=== PATIENT | male | born 1980 | race Two or more races ===

== ENCOUNTER 2020-06-19 04:46 | Emergency (ER) | payer OTHER ==
[2020-06-19] MEDS ORDERED: Adenosine 6 MG/2 ML SDV ONE ×2 (04:50→04:57)
[2020-06-19] MEDS ORDERED: Diltiazem 25 MG/5 ML SDV ONE ×2 (05:01→05:21)
[2020-06-19] MEDS ORDERED: Sodium Chloride 0.9% 2.5 ML Syringe FLUSH PRN (05:04)
[2020-06-19] MEDS ORDERED: Sodium Chloride 0.9% 10 ML Syringe FLUSH PRN (05:04)
[2020-06-19] MEDS ORDERED: Adenosine 6 MG/2 ML SDV IVPUSH ONE ×2 (05:10→05:11)
[2020-06-19] MEDS ORDERED: Diltiazem 25 MG/5 ML SDV IVPUSH ONE ×2 (05:11→06:16)
[2020-06-19] MEDS ORDERED: Sodium Chloride 0.9% 1,000 ML IV SCH ×2 (05:15→06:30)
[2020-06-19 05:25] LABS: BLOOD UREA NITROGEN,BUN 8 mg/dL (7.0-18.0); CARBON DIOXIDE,CO2 20.4 mmol/L (21.0-32.0); CHLORIDE,CL 105 mmol/L (98-107); GLUCOSE RANDOM 116 mg/dL (74-106); POTASSIUM,K 3.5 mmol/L (3.5-5.1); SODIUM,NA 141 mmol/L (136-148)
[2020-06-19] MEDS ORDERED: Heparin Sodium 5,000 Units/ML Vial IVPUSH ONE (05:35)
[2020-06-19] MEDS ORDERED: Diltiazem 125 MG in Sodium Chloride 0.9% 100 ML IV SCH (05:45)
[2020-06-19] MEDS ORDERED: Heparin Sod,Pork In 0.45% Nacl 25,000 UNIT/500 ML IV.SOLN IV SCH (05:45)
[2020-06-19] MEDS ORDERED: Heparin Sod,Pork In 0.45% Nacl 25,000 UNIT/500 ML IV.SOLN IV ONE (05:49)
[2020-06-19] MEDS ORDERED: Sodium Chloride 0.9% 100 ML ONE (05:54)
--- NOTE | 2020-06-19 06:09 | CR ---
INDICATION: Chest pain TECHNIQUE: Chest 1 view COMPARISON: None FINDINGS: Cardiovascular and mediastinum: Heart size and vasculature are normal in caliber and appearance. Lungs and pleural spaces: Lungs are clear. No sign of infiltrate or mass. No sign of pleural effusion. No pneumothorax. Bones and soft tissues: No significant findings. IMPRESSION: Normal chest. Dictated by Venu Boyle MD @ Jun 19 2020 6:06AM Signed by Dr. Venu Boyle @ Jun 19 2020 6:06AM
[2020-06-19] MEDS ORDERED: Diltiazem 100 MG in Sodium Chloride 0.9% 100 ML IV SCH (06:15)
[2020-06-19] MEDS ORDERED: Calcium Gluconate 10% 1 GM/10 ML SDV IV STA (06:20)
[2020-06-19] MEDS ORDERED: Calcium Gluconate 10% 1 GM/10 ML SDV ONE (06:21)
--- NOTE | 2020-06-19 06:24 | EDM.PDOC ---
ED HPI GENERAL MEDICAL PROBLEM - General Chief Complaint: Chest Pain Stated Complaint: CHEST PAIN Time Seen by Provider: 06/19/20 04:48 - History of Present Illness INITIAL COMMENTS - FREE TEXT/NARRATIVE: CHIEF COMPLAINT(S): Chest pain HISTORY OF PRESENT ILLNESS: This is a 39-year-old man who presents to the emergency department as a medical resuscitation via EMS with a chief complaint of chest pain. Per EMS: On arrival patient had normal blood pressure but was tacky into the 190s to 200s. They did provide the patient with 324 mg of aspirin. They did obtain a rhythm strip for which the interpreted SVT. They attempted vagal maneuvers without any success. They then provided the patient with 6 mg of SVT and his heart rate went down into the 140s however returned back to the 200s. They transfer him to the hospital. The patient states that approximately 1 hour prior to arrival he started to experience left-sided chest pain associated with diaphoresis and shortness of breath. He rated his pain as 10 out of 10 which has since improved to 4 out of 10. He denied any radiation of this pain. He denies any aggravating or relieving symptoms. He denied any nausea or vomiting or left arm numbness or tingling. He denies any headache, or any other symptom. He denies any coronavirus exposure. He states that he was recently started on lisinopril for hypertension and has a history of sleep apnea. He states that he does not have a history of atrial fibrillation. He denies any personal history of CAD or heart disease or any family history of CAD or heart disease. He states that he does drink alcohol approximately 612 ounce beers a day. He denies any history of alcohol withdrawal. Last drink was earlier yesterday. REVIEW OF SYSTEMS: Constitutional: Positive for diaphoresis. Denies fever, chills. Eyes: Denies eye pain Ears, Nose, Mouth, & Throat: Denies earache Cardiovascular: Positive for chest pain Respiratory: Positive for shortness of breath. Denies cough Gastrointestinal: Denies Nausea, vomiting, diarrhea, hematochezia. Genitourinary: Denies hematuria Skin:Denies a rash Neurological: Denies blurred vision Psychiatric: Denies depression PAST MEDICAL HISTORY: As per history of present illness and as reviewed below otherwise noncontributory. SURGICAL HISTORY: As per history of present illness and as reviewed below otherwise noncontributory. SOCIAL HISTORY: As per history of present illness and as reviewed below otherwise noncontributory. FAMILY HISTORY: As per history of present illness and as reviewed below otherwise noncontributory. EXAMINATION OF ORGAN SYSTEMS/BODY AREAS: VITALS: Heart rate was 211, respiratory rate 18 with an oxygen saturation 99% on room air.. GENERAL: The patient is well-nourished, well-developed, in no acute distress. HEAD: Normocephalic, atraumatic. EYES: EOMs intact. PERRL. ENT. External ears WNL. Nares patent. Oropharynx is clear with no erythema or exudate. No uvular or tongue swelling. NECK: Supple, no masses. Trachea is midline. LUNGS: No tachypnea or intercostal retractions. Clear to auscultation bilaterally, no wheezing, no rales, no stridor, no rhonchi. CARDIOVASCULAR: Tachycardic. No murmurs, rubs, gallops no edema. No JVD. ABDOMEN: Soft, non-distended, non-tender. Bowel sounds present in all 4 quadrants. No rebound tenderness, guarding, or peritoneal signs. MUSCULOSKELETAL: No deformity. Patient is moving all 4 limbs spontaneously. NEUROLOGICAL: Alert and oriented x 3. No focal neurological deficits noted. SKIN: No rashes, or pallor. No signs of injury. MEDICAL DECISION MAKING AND COURSE IN THE ED WITH INTERPRETATION/REVIEW OF DIAGNOSTIC STUDIES: This is a 39-year-old man who presents to the emergency department as a medical resuscitation via EMS with a chief complaint of chest pain. Immediately upon entering the resuscitation room the patient was disrobed, placed on continuous cardiac monitoring, and IV access was established by nursing. Patient is able to speak thus displaying a patent airway, breath sounds are equal bilaterally, and patient has palpable pulses in all 4 extremities. At this time the patient was placed on the monitor and his heart rate was in the 200s. It appeared regular on the monitor. We did obtain an EKG which showed narrow complex tachycardia with occasional P waves. This could represent sinus tachycardia, atrial fibrillation with RVR, or SVT. We did provide the patient with 6 mg of adenosine to evaluate rhythm. 6 mg of adenosine did not have any effect. Therefore we provided the patient with 12 mg of adenosine. The rhythm did slow down and appeared to be atrial fibrillation with RVR. Therefore we provided the patient with 20 mg of IV Cardizem. His heart rate did decrease to the 110s however then returned to the 150s. We then provided the patient with additional bolus of Cardizem at 25 mg. Again his heart rate did decrease to the 110s and then increased to the 150s. Therefore we started a Cardizem drip. Given new onset atrial fibrillation and chest pain we will obtain a cardiac work-up. Including CBC, CMP, troponin, coags, chest x- ray. I also provide the patient with 1 L of normal saline bolus. Chest Xray: Chest Xray obtained in the resuscitation bay was interpreted by myself. Image showed no acute cardiopulmonary process EKG INTERPRETATION Twelve-lead EKG interpreted by the attending physician and reviewed with me. Atrial fibrillation with RVR at a rate of 211 beats per minute. Normal axis. QRS duration is 106ms. ST segments are normal without elevations or depressions. No Q waves present. Hypertrophy not noted. No prior EKGs in our system. There is an isolated T wave inversion in lead aVL. Interpretation: Atrial fibrillation with RVR Laboratory: CBC reveals a microcytic anemia with a hemoglobin of 10 and hematocrit of 34.3. Coags are within normal limits. CMP reveals metabolic acidosis with a bicarbonate of 20.4 without any anion gap. Hyperglycemia at 116. Hypocalcemia at 8.0. Albumin is normal. Mild elevation in AST at 39. Troponin x1 is positive at 0.059. After labs I did start the patient on heparin for possible NSTEMI. I also reevaluated the patient. The patient denied any hematemesis, melena, or hematochezia. He does not have any history of anemia. I did discuss transfer with the patient at this time and he was amenable to this plan. At this time given need for cardiology we did contact [facility] which was the closest accepting facility and I did speak to Dr. Hussein regarding transfer. She did accept the patient. The patient will be transferred via fixed wing. She recommended obtaining a TSH for which I did order the TSH. This will likely not be resulted prior to the patient leaving. We did send a coronavirus swab. Flight crew did arrive. At the time that the flight crew left the patient's heart rate was 130. They will continue titrating the Cardizem for a heart rate less than 110. The patient was asymptomatic at this time. DISPOSITION: Transfer to [facility] CONDITION: Serious Procedures: cafeteria monitor interpretation, Pulse oximetry interpretation FINAL IMPRESSION(S)/DIAGNOSES: 1. Acute new onset atrial fibrillation with RVR 2. Acute elevated troponin, possible NSTEMI versus type II demand ischemia 3. Microcytic anemia 4. Hypocalcemia Critical Care Procedure Note Authorized and performed by: Vaibhav Bautista M.D. Critical Care Time: 60 minutes Due to a high probability of clinically significant, life threatening deterioration, the patient required my highest level of preparedness to intervene emergently and I personally spent this critical care time directly and personally managing the patient. This critical care time included obtaining a history, examining the patient, pulse oximetry; ordering and review of studies; arranging urgent treatment with development of a management plan; evaluation of a patients reponse to treatment; frequent assessment; and discussions with other providers. This critical care time was performed to assess and manage the high probability of imminent, life threatening deterioration that could result in multiorgan failure. It was exclusive of separate billable procedures and treating other patients. Please see MDM section and rest of the note for further information on patient assessment and treatment. Please see MDM section and rest of the note for further information on patient assessment and treatment. 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: Aspirin, IV/IO, Other Medication(s) Left Upper Chest Pain Score (Numeric/FACES): 4 - Related Data Allergies Allergy/AdvReac Type Severity Reaction Status Date / Time No Known Allergies Allergy Verified 06/19/20 05:04 Home Meds: Home Meds lisinopriL [Lisinopril] 5 mg PO DAILY 06/19/20 [History] ED ROS GENERAL - Review of Systems Review Of Systems: See Below ED EXAM, GENERAL - Physical Exam Exam: See Below Course - Vital Signs Last Recorded V/S: Last Vital Signs Temp Pulse 211 H 06/19/20 04:48 Resp 18 06/19/20 04:48 BP 136/85 06/19/20 04:48 Pulse Ox 99 06/19/20 04:48 - Orders/Labs/Meds Orders: Active Orders 24 hr Category Date Time Status EKG Documentation Completion [RC] STAT Care 06/19/20 05:04 Active Diltiazem 100 mg Med 06/19/20 06:15 Active Sodium Chloride 0.9% [Normal Saline] 100 ml IV NOW Diltiazem 125 mg Med 06/19/20 05:45 Active Sodium Chloride 0.9% [Normal Saline] 100 ml IV NOW Heparin Sod,Pork In 0.45% Nacl [Heparin-1/2Ns 25,000 Med 06/19/20 05:45 Active Units/500] 25,000 unit in 500 ml IV TITRATE Sodium Chloride 0.9% [Normal Saline] 1,000 ml Med 06/19/20 05:15 Active IV ASDIRECTED Sodium Chloride 0.9% [Normal Saline] 1,000 ml Med 06/19/20 06:30 Active IV ASDIRECTED Sodium Chloride 0.9% [Saline Flush] Med 06/19/20 05:04 Active 10 ml FLUSH ASDIRECTED PRN Sodium Chloride 0.9% [Saline Flush] Med 06/19/20 05:04 Active 2.5 ml FLUSH ASDIRECTED PRN Saline Lock Insert [OM.PC] Stat Oth 06/19/20 05:04 Ordered Medication Orders Sodium Chloride (Normal Saline) 1,000 mls @ 999 mls/hr IV ASDIRECTED ROBERTO Last Admin: 06/19/20 06:16 Dose: 999 mls/hr Documented by: EMANUEL Heparin Sodium/Sodium Chloride (Heparin-1/2ns 25,000 Units/500) 25,000 unit in 500 mls @ 25.038 mls/hr IV TITRATE ROBERTO; Protocol Last Admin: 06/19/20 06:00 Dose: 12 units/kg/hr, 25.038 mls/hr Documented by: EMANUEL Cosigned by: KWESI Diltiazem HCl 125 mg/ Sodium (Chloride) 125 mls @ 5 mls/hr IV NOW ROBERTO; Protocol Diltiazem HCl 100 mg/ Sodium (Chloride) 120 mls @ 6 mls/hr IV NOW ROBERTO; Protocol Sodium Chloride (Normal Saline) 1,000 mls @ 999 mls/hr IV ASDIRECTED ROBERTO Sodium Chloride (Saline Flush) 10 ml FLUSH ASDIRECTED PRN PRN Reason: Keep Vein Open Sodium Chloride (Saline Flush) 2.5 ml FLUSH ASDIRECTED PRN PRN Reason: Keep Vein Open Labs: Laboratory Tests 06/19/20 06/19/20 06/19/20 Range/Units 04:48 04:48 04:48 WBC 5.08 (4.0-11.0) K/uL RBC 5.58 (4.50-5.90) M/uL Hgb 10.0 L (13.0-17.0) g/dL Hct 34.3 L (38.0-50.0) % MCV 61.5 L (80.0-98.0) fL MCH 17.9 L (27.0-32.0) pg MCHC 29.2 L (31.0-37.0) g/dL RDW Std Deviation 42.3 (28.0-62.0) fl RDW Coeff of Des 20 H (11.0-15.0) % Plt Count 207 (150-400) K/uL MPV (7.40-12.00) fL Neut % (Auto) 39.3 L (48.0-80.0) % Lymph % (Auto) 46.9 H (16.0-40.0) % [place] % (Auto) 7.5 (0.0-15.0) % Eos % (Auto) 6.1 (0.0-7.0) % Baso % (Auto) 0.2 (0.0-1.5) % Neut # (Auto) 2.0 (1.4-5.7) K/uL Lymph # (Auto) 2.4 (0.6-2.4) K/uL [place] # (Auto) 0.4 (0.0-0.8) K/uL Eos # (Auto) 0.3 (0.0-0.7) K/uL Baso # (Auto) 0.0 (0.0-0.1) K/uL Nucleated RBC % 0.0 /100WBC Nucleated RBCs # 0 K/uL INR 1.10 Sodium 141 (136-148) mmol/L Potassium 3.5 (3.5-5.1) mmol/L Chloride 105 (98-107) mmol/L Carbon Dioxide 20.4 L (21.0-32.0) mmol/L BUN 8 (7.0-18.0) mg/dL Creatinine 1.1 (0.8-1.3) mg/dL Est Cr Clr Drug Dosing 85.13 mL/min Estimated GFR (MDRD) > 60.0 ml/min Glucose 116 H (74-106) mg/dL Calcium 8.0 L (8.5-10.1) mg/dL Total Bilirubin 0.3 (0.2-1.0) mg/dL AST 39 H (15-37) IU/L ALT 49 (14-63) IU/L Alkaline Phosphatase 91 (46-116) U/L Troponin I 0.059 H* (0.000-0.056) ng/mL Total Protein 7.9 (6.4-8.2) g/dL Albumin 4.3 (3.4-5.0) g/dL Globulin 3.6 (2.6-4.0) g/dL Albumin/Globulin Ratio 1.2 (0.9-1.6) TSH 3rd Generation (0.36-3.74) uIU/mL Urine Color Urine Appearance Urine pH (5.0-8.0) Ur Specific [place] (1.001-1.035) Urine Protein (NEGATIVE) mg/dL Urine Glucose (UA) (NEGATIVE) mg/dL Urine Ketones (NEGATIVE) mg/dL Urine Occult Blood (NEGATIVE) Urine Nitrite (NEGATIVE) Urine Bilirubin (NEGATIVE) Urine Urobilinogen (<2.0) EU/dL Ur Leukocyte Esterase (NEGATIVE) SARS-CoV-2 RNA (LORRI) (NEGATIVE) 06/19/20 06/19/20 06/19/20 Range/Units 04:48 05:30 05:33 WBC (4.0-11.0) K/uL RBC (4.50-5.90) M/uL Hgb (13.0-17.0) g/dL Hct (38.0-50.0) % MCV (80.0-98.0) fL MCH (27.0-32.0) pg MCHC (31.0-37.0) g/dL RDW Std Deviation (28.0-62.0) fl RDW Coeff of Des (11.0-15.0) % Plt Count (150-400) K/uL MPV (7.40-12.00) fL Neut % (Auto) (48.0-80.0) % Lymph % (Auto) (16.0-40.0) % [place] % (Auto) (0.0-15.0) % Eos % (Auto) (0.0-7.0) % Baso % (Auto) (0.0-1.5) % Neut # (Auto) (1.4-5.7) K/uL Lymph # (Auto) (0.6-2.4) K/uL [place] # (Auto) (0.0-0.8) K/uL Eos # (Auto) (0.0-0.7) K/uL Baso # (Auto) (0.0-0.1) K/uL Nucleated RBC % /100WBC Nucleated RBCs # K/uL INR Sodium (136-148) mmol/L Potassium (3.5-5.1) mmol/L Chloride (98-107) mmol/L Carbon Dioxide (21.0-32.0) mmol/L BUN (7.0-18.0) mg/dL Creatinine (0.8-1.3) mg/dL Est Cr Clr Drug Dosing mL/min Estimated GFR (MDRD) ml/min Glucose (74-106) mg/dL Calcium (8.5-10.1) mg/dL Total Bilirubin (0.2-1.0) mg/dL AST (15-37) IU/L ALT (14-63) IU/L Alkaline Phosphatase (46-116) U/L Troponin I (0.000-0.056) ng/mL Total Protein (6.4-8.2) g/dL Albumin (3.4-5.0) g/dL Globulin (2.6-4.0) g/dL Albumin/Globulin Ratio (0.9-1.6) TSH 3rd Generation 4.86 H (0.36-3.74) uIU/mL Urine Color YELLOW Urine Appearance CLEAR Urine pH 6.5 (5.0-8.0) Ur Specific [place] 1.010 (1.001-1.035) Urine Protein NEGATIVE (NEGATIVE) mg/dL Urine Glucose (UA) NEGATIVE (NEGATIVE) mg/dL Urine Ketones NEGATIVE (NEGATIVE) mg/dL Urine Occult Blood NEGATIVE (NEGATIVE) Urine Nitrite NEGATIVE (NEGATIVE) Urine Bilirubin NEGATIVE (NEGATIVE) Urine Urobilinogen 0.2 (<2.0) EU/dL Ur Leukocyte Esterase NEGATIVE (NEGATIVE) SARS-CoV-2 RNA (LORRI) NEGATIVE (NEGATIVE) Meds: Medications Generic Name Dose Route Start Last Admin Trade Name Freq PRN Reason Stop Dose Admin Sodium Chloride 1,000 mls @ 999 mls/hr 06/19/20 05:15 06/19/20 06:16 Normal Saline IV 999 mls/hr ASDIRECTED ROBERTO Administration Heparin Sodium/Sodium Chloride 25,000 unit in 500 mls @ 25.038 mls/hr 06/19/20 05:45 06/19/20 06:00 Heparin-1/2ns 25,000 Units/500 IV 12 units/kg/hr TITRATE ROBERTO 25.038 mls/hr Administration Protocol 12 UNITS/KG/HR Diltiazem HCl 125 mg/ Sodium 125 mls @ 5 mls/hr 06/19/20 05:45 Chloride IV NOW ROBERTO Protocol 5 MG/HR Diltiazem HCl 100 mg/ Sodium 120 mls @ 6 mls/hr 06/19/20 06:15 Chloride IV NOW ROBERTO Protocol 5 MG/HR Sodium Chloride 1,000 mls @ 999 mls/hr 06/19/20 06:30 Normal Saline IV ASDIRECTED ROBERTO Sodium Chloride 10 ml 06/19/20 05:04 Saline Flush FLUSH ASDIRECTED PRN Keep Vein Open Sodium Chloride 2.5 ml 06/19/20 05:04 Saline Flush FLUSH ASDIRECTED PRN Keep Vein Open Discontinued Medications Generic Name Dose Route Start Last Admin Trade Name Freq PRN Reason Stop Dose Admin Adenosine Confirm 06/19/20 04:50 06/19/20 06:18 Adenocard Administered 06/19/20 04:51 Not Given Dose 12 mg .ROUTE .STK-MED ONE Adenosine Confirm 06/19/20 04:57 06/19/20 06:18 Adenocard Administered 06/19/20 04:58 Not Given Dose 12 mg .ROUTE .STK-MED ONE Adenosine 6 mg 06/19/20 05:10 06/19/20 06:12 Adenocard IVPUSH 06/19/20 05:11 6 mg NOW ONE Administration Adenosine 12 mg 06/19/20 05:11 06/19/20 06:13 Adenocard IVPUSH 06/19/20 05:12 12 mg NOW ONE Administration Calcium Gluconate 1 gm 06/19/20 06:20 06/19/20 06:22 Calcium Gluconate IV 06/19/20 06:21 1 gm ONETIME STA Administration Calcium Gluconate Confirm 06/19/20 06:21 Calcium Gluconate Administered 06/19/20 06:22 Dose 1 gm .ROUTE .STK-MED ONE Diltiazem HCl Confirm 06/19/20 05:01 06/19/20 06:19 Diltiazem Administered 06/19/20 05:02 Not Given Dose 25 mg .ROUTE .STK-MED ONE Diltiazem HCl 20 mg 06/19/20 05:11 06/19/20 06:15 Diltiazem IVPUSH 06/19/20 05:12 20 mg ONETIME ONE Administration Diltiazem HCl Confirm 06/19/20 05:21 Diltiazem Administered 06/19/20 05:22 Dose 25 mg .ROUTE .STK-MED ONE Diltiazem HCl 25 mg 06/19/20 06:16 06/19/20 06:16 Diltiazem IVPUSH 06/19/20 06:17 25 mg ONETIME ONE Administration Heparin Sodium (Porcine) 4,000 units 06/19/20 05:35 06/19/20 05:58 Heparin Sodium IVPUSH 06/19/20 05:36 4,000 units .BOLUS ONE Administration Heparin Sodium/Sodium Chloride Confirm 06/19/20 05:49 06/19/20 06:13 Heparin-1/2ns 25,000 Units/500 Administered 06/19/20 05:50 Not Given Dose 25,000 unit in 500 mls @ as directed IV .STK-MED ONE Sodium Chloride Confirm 06/19/20 05:54 Normal Saline Administered 06/19/20 05:55 Dose 100 mls @ as directed .ROUTE .STK-MED ONE Departure - Departure Time of Disposition: 06:30 Disposition: DC/Tfer to Acute Hospital 02 Reason for Transfer *Q: Other (Cardiology) Clinical Impression: Atrial fibrillation with RVR, NSTEMI (non-ST elevated myocardial infarction) Referrals: PCP,None [Primary Care Provider] - Forms: ED Department Discharge Sepsis Event Note (ED) - Evaluation Sepsis Screening Result: No Definite Risk - Focused Exam Vital Signs: Vital Signs Pulse Resp BP Pulse Ox 06/19/20 04:48 211 H 18 136/85 99 - My Orders Last 24 Hours: My Active Orders 06/19/20 05:04 EKG Documentation Completion [RC] STAT Sodium Chloride 0.9% [Saline Flush] 10 ml FLUSH ASDIRECTED PRN Sodium Chloride 0.9% [Saline Flush] 2.5 ml FLUSH ASDIRECTED PRN Saline Lock Insert [OM.PC] Stat 06/19/20 05:15 Sodium Chloride 0.9% [Normal Saline] 1,000 ml IV ASDIRECTED 06/19/20 05:45 Diltiazem 125 mg Sodium Chloride 0.9% [Normal Saline] 100 ml IV NOW Heparin Sod,Pork In 0.45% Nacl [Heparin-1/2Ns 25,000 Units/500] 25,000 unit in 500 ml IV TITRATE 06/19/20 06:15 Diltiazem 100 mg Sodium Chloride 0.9% [Normal Saline] 100 ml IV NOW 06/19/20 06:30 Sodium Chloride 0.9% [Normal Saline] 1,000 ml IV ASDIRECTED - Assessment/Plan Last 24 Hours: My Active Orders 06/19/20 05:04 EKG Documentation Completion [RC] STAT Sodium Chloride 0.9% [Saline Flush] 10 ml FLUSH ASDIRECTED PRN Sodium Chloride 0.9% [Saline Flush] 2.5 ml FLUSH ASDIRECTED PRN Saline Lock Insert [OM.PC] Stat 06/19/20 05:15 Sodium Chloride 0.9% [Normal Saline] 1,000 ml IV ASDIRECTED 06/19/20 05:45 Diltiazem 125 mg Sodium Chloride 0.9% [Normal Saline] 100 ml IV NOW Heparin Sod,Pork In 0.45% Nacl [Heparin-1/2Ns 25,000 Units/500] 25,000 unit in 500 ml IV TITRATE 06/19/20 06:15 Diltiazem 100 mg Sodium Chloride 0.9% [Normal Saline] 100 ml IV NOW 06/19/20 06:30 Sodium Chloride 0.9% [Normal Saline] 1,000 ml IV ASDIRECTED
== END 2020-06-19 06:40 ==
LOC: MW.ED 04:46
DX: I48.91 Unspecified atrial fibrillation (principal); R79.89 Other specified abnormal findings of blood chemistry; D50.9 Iron deficiency anemia, unspecified; E83.51 Hypocalcemia; Z20.828 Contact with and (suspected) exposure to other viral communicable diseases
CPT/HCPCS: 36415; 71045; 80053; 81003; 84443; 84484; 85025; 85610; 87635; 96365; 96368; 96375; 96376; 99285; J0153; J0610; J1644; J3490; J7030; 93010; 99291; A9270-GY; U0002

== ENCOUNTER 2020-07-20 19:33 | Emergency (ER) | payer BC ==
[2020-07-20] MEDS ORDERED: Sodium Chloride 0.9% 10 ML Syringe FLUSH PRN (20:28)
[2020-07-20] MEDS ORDERED: Sodium Chloride 0.9% 2.5 ML Syringe FLUSH PRN (20:28)
--- NOTE | 2020-07-20 20:33 | EDM.PDOC ---
ED HPI GENERAL MEDICAL PROBLEM - General Chief Complaint: Cardiovascular Problem Stated Complaint: HIGH BLOOD PRESSURE Time Seen by Provider: 07/20/20 20:27 Source of Information: Reports: Patient History Limitations: Reports: No Limitations - History of Present Illness INITIAL COMMENTS - FREE TEXT/NARRATIVE: 39-year-old male with a history of HTN, NSTEMI secondary to Afib with RVR 1 month ago, presents with hypertension. He was getting his physical today and his blood pressure was too high and was told to come into the ER. He did not check his blood pressure 1 hour ago at [facility], registering 188/124. He lives in [place] and plans to leave tomorrow to see his PCP. Patient denies fever, chills, headache, chest pain, shortness of breath, abdominal pain, back pain, focal numbness or weakness. He takes lisinopril 10 mg and carvedilol and Eliquis. ROS: A 10-point review of systems, other than pertinent positives and negatives as stated per HPI, is otherwise negative Past medical history: No additional pertinent history Past Surgical history: No additional pertinent history Social history: No additional pertinent history Family history: No additional pertinent history PHYSICAL EXAM General: AOx4, GCS = 15, No distress HEENT: dry mucous membrane Neck: supple, no meningismus, no Kernig or Brudzinski Cardiac: S1S2 RRR Respiratory: CTAB, no crackles or rales, no wheezing Abdomen: Soft, nontender, no rebound or guarding, nondistended, no pulsatile mass. Back: nontender Musculoskeletal: NVI distally, no deformity Neuro: No focal deficits, CN 2 - 12 WNL. - Related Data Allergies Allergy/AdvReac Type Severity Reaction Status Date / Time No Known Allergies Allergy Verified 07/20/20 20:31 Home Meds: Home Meds lisinopriL [Lisinopril] 10 mg PO DAILY 06/19/20 [History] Apixaban [Eliquis] 5 mg PO BID 07/20/20 [History] Omeprazole 20 mg PO DAILY 07/20/20 [History] carvediloL [Carvedilol] 6.25 mg PO DAILY 07/20/20 [History] Past Medical History Cardiovascular History: Reports: High Cholesterol Social & Family History - Family History Family Medical History: No Pertinent Family History ED ROS GENERAL - Review of Systems Review Of Systems: See Below (see dictation) ED EXAM, GENERAL - Physical Exam Exam: See Below (see dictation) #1 Interpretation EKG Interpretation Comments: Heart rate = 62 bpm, normal sinus rhythm, normal QRS interval, no STEMI. EKG and rhythm strip interpreted by me at 2100 Course - Vital Signs Last Recorded V/S: Last Vital Signs Temp 97.1 F 07/20/20 20:33 Pulse 67 07/20/20 21:12 Resp 18 07/20/20 21:12 BP 198/96 H 07/20/20 21:12 Pulse Ox 99 07/20/20 21:12 - Orders/Labs/Meds Orders: Active Orders 24 hr Category Date Time Status Cardiac Monitoring [RC] . DIRECTED Care 07/20/20 20:28 Active EKG Documentation Completion [RC] STAT Care 07/20/20 20:29 Active Sodium Chloride 0.9% [Normal Saline] 1,000 ml Med 07/20/20 21:16 Active IV .Bolus Sodium Chloride 0.9% [Saline Flush] Med 07/20/20 20:28 Active 10 ml FLUSH ASDIRECTED PRN Sodium Chloride 0.9% [Saline Flush] Med 07/20/20 20:28 Active 2.5 ml FLUSH ASDIRECTED PRN Saline Lock Insert [OM.PC] Stat Oth 07/20/20 20:28 Ordered Medication Orders Sodium Chloride (Normal Saline) 1,000 mls @ 999 mls/hr IV .Bolus ONE Stop: 07/20/20 22:16 Last Admin: 07/20/20 21:17 Dose: 999 mls/hr Documented by: [id number] Sodium Chloride (Saline Flush) 10 ml FLUSH ASDIRECTED PRN PRN Reason: Keep Vein Open Sodium Chloride (Saline Flush) 2.5 ml FLUSH ASDIRECTED PRN PRN Reason: Keep Vein Open Labs: Laboratory Tests 07/20/20 07/20/20 Range/Units 20:37 20:37 WBC 4.55 (4.0-11.0) K/uL RBC 5.15 (4.50-5.90) M/uL Hgb 11.1 L (13.0-17.0) g/dL Hct 36.1 L (38.0-50.0) % MCV 70.1 L (80.0-98.0) fL MCH 21.6 L (27.0-32.0) pg MCHC 30.7 L (31.0-37.0) g/dL RDW Std Deviation 65.8 H (28.0-62.0) fl RDW Coeff of Des 27 H (11.0-15.0) % Plt Count 180 (150-400) K/uL MPV 9.40 (7.40-12.00) fL Neut % (Auto) 47.5 L (48.0-80.0) % Lymph % (Auto) 40.2 H (16.0-40.0) % [place] % (Auto) 5.9 (0.0-15.0) % Eos % (Auto) 6.2 (0.0-7.0) % Baso % (Auto) 0.2 (0.0-1.5) % Neut # (Auto) 2.2 (1.4-5.7) K/uL Lymph # (Auto) 1.8 (0.6-2.4) K/uL [place] # (Auto) 0.3 (0.0-0.8) K/uL Eos # (Auto) 0.3 (0.0-0.7) K/uL Baso # (Auto) 0.0 (0.0-0.1) K/uL Nucleated RBC % 0.0 /100WBC Nucleated RBCs # 0 K/uL Sodium 140 (136-148) mmol/L Potassium 3.8 (3.5-5.1) mmol/L Chloride 105 (98-107) mmol/L Carbon Dioxide 23.6 (21.0-32.0) mmol/L BUN 12 (7.0-18.0) mg/dL Creatinine 1.0 (0.8-1.3) mg/dL Est Cr Clr Drug Dosing 93.64 mL/min Estimated GFR (MDRD) > 60.0 ml/min Glucose 87 (74-106) mg/dL Calcium 8.8 (8.5-10.1) mg/dL Total Bilirubin 0.4 (0.2-1.0) mg/dL AST 35 (15-37) IU/L ALT 40 (14-63) IU/L Alkaline Phosphatase 79 (46-116) U/L Troponin I < 0.050 (0.000-0.056) ng/mL Total Protein 7.8 (6.4-8.2) g/dL Albumin 4.4 (3.4-5.0) g/dL Globulin 3.4 (2.6-4.0) g/dL Albumin/Globulin Ratio 1.3 (0.9-1.6) Meds: Medications Generic Name Dose Route Start Last Admin Trade Name Freq PRN Reason Stop Dose Admin Sodium Chloride 1,000 mls @ 999 mls/hr 07/20/20 21:16 07/20/20 21:17 Normal Saline IV 07/20/20 22:16 999 mls/hr .Bolus ONE Administration Sodium Chloride 10 ml 07/20/20 20:28 Saline Flush FLUSH ASDIRECTED PRN Keep Vein Open Sodium Chloride 2.5 ml 07/20/20 20:28 Saline Flush FLUSH ASDIRECTED PRN Keep Vein Open Discontinued Medications Generic Name Dose Route Start Last Admin Trade Name Freq PRN Reason Stop Dose Admin Sodium Chloride 1,000 mls @ 999 mls/hr 07/20/20 20:45 Normal Saline IV .BOLUS ROBERTO Labetalol HCl 10 mg 07/20/20 20:37 07/20/20 21:13 Normodyne IVPUSH 07/20/20 20:38 10 mg ONETIME ONE Administration Protocol - Re-Assessments/Exams Free Text/Narrative Re-Assessment/Exam: 07/20/20 20:31 After IV labetalol in the ER, his blood pressure improved to 170/85, heart rate = 57. He is stable for discharge. I advised the patient to return to the ER for reevaluation if symptoms worsened, including fever, worsening pain, or any other worrisome symptoms. I instructed the patient to follow up with their PCP within 2-3 days. MEDICAL DECISION MAKING: I reviewed the patients past medical records, lab and radiographic findings. I discussed the case with the patient. My differential diagnosis included: Asymptomatic hypertension. Departure - Departure Time of Disposition: 21:46 Disposition: Home, Self-Care 01 Condition: Good Clinical Impression: Hypertension Instructions: Preventing Hypertension, Hypertension, Adult, [id number] Referrals: PCP,None [Primary Care Provider] - Forms: ED Department Discharge Additional Instructions: The need for follow-up, as well as the timing and circumstances, are variable depending upon the specifics of your emergency department visit. If you don't have a primary care physician on staff, we will provide you with a referral. We always advise you to contact your personal physician following an emergency department visit to inform them of the circumstance of the visit and for follow-up with them and/or the need for any referrals to a consulting specialist. The emergency department will also refer you to a specialist when appropriate. This referral assures that you have the opportunity for follow-up care with a specialist. All of these measure are taken in an effort to provide you with optimal care, which includes your follow-up. Under all circumstances we always encourage you to contact your private physician who remains a resource for coordinating your care. When calling for follow-up care, please make the office aware that this follow-up is from your recent emergency room visit. If for any reason you are refused follow-up, please contact the [facility] at and asked to speak to the emergency department charge nurse. If you do not have a primary care doctor, please follow up with the clinics below within 3-5 days. [facility] [address] [place] [address] [id number] [facility] [address] [place] [address] Sepsis Event Note (ED) - Focused Exam Vital Signs: Vital Signs Temp Pulse Resp BP Pulse Ox 07/20/20 21:12 67 18 198/96 H 99 07/20/20 20:33 97.1 F 70 16 182/107 H 98 - My Orders Last 24 Hours: My Active Orders 07/20/20 20:28 Cardiac Monitoring [RC] . DIRECTED Sodium Chloride 0.9% [Saline Flush] 10 ml FLUSH ASDIRECTED PRN Sodium Chloride 0.9% [Saline Flush] 2.5 ml FLUSH ASDIRECTED PRN Saline Lock Insert [OM.PC] Stat 07/20/20 20:29 EKG Documentation Completion [RC] STAT 07/20/20 21:16 Sodium Chloride 0.9% [Normal Saline] 1,000 ml IV .Bolus - Assessment/Plan Last 24 Hours: My Active Orders 07/20/20 20:28 Cardiac Monitoring [RC] . DIRECTED Sodium Chloride 0.9% [Saline Flush] 10 ml FLUSH ASDIRECTED PRN Sodium Chloride 0.9% [Saline Flush] 2.5 ml FLUSH ASDIRECTED PRN Saline Lock Insert [OM.PC] Stat 07/20/20 20:29 EKG Documentation Completion [RC] STAT 07/20/20 21:16 Sodium Chloride 0.9% [Normal Saline] 1,000 ml IV .Bolus
[2020-07-20] MEDS ORDERED: Labetalol 100 MG/20 ML MDV IVPUSH ONE (20:37)
[2020-07-20] MEDS ORDERED: Sodium Chloride 0.9% 1,000 ML IV SCH (20:45)
--- NOTE | 2020-07-20 20:56 | CR ---
Indication: Hypertension Comparison: None available. Technique: Single AP view chest Findings: There is no focal consolidation, effusion, or pneumothorax. The cardiomediastinal silhouette is within normal limits. The bony thorax is grossly intact. Impression: No acute cardiopulmonary abnormality. Dictated by Fernando Erazo MD @ Jul 20 2020 8:54PM Signed by Dr. Fernando Erazo @ Jul 20 2020 8:55PM
[2020-07-20 21:08] LABS: BLOOD UREA NITROGEN,BUN 12 mg/dL (7.0-18.0); CARBON DIOXIDE,CO2 23.6 mmol/L (21.0-32.0); CHLORIDE,CL 105 mmol/L (98-107); GLUCOSE RANDOM 87 mg/dL (74-106); POTASSIUM,K 3.8 mmol/L (3.5-5.1); SODIUM,NA 140 mmol/L (136-148)
[2020-07-20] MEDS ORDERED: Sodium Chloride 0.9% 1,000 ML IV ONE (21:16)
== END 2020-07-20 22:01 | disposition home or self-care (01) ==
LOC: MW.ED 19:33
DX: I10 Essential (primary) hypertension (principal); I48.91 Unspecified atrial fibrillation; Z79.899 Other long term (current) drug therapy; Z79.01 Long term (current) use of anticoagulants
CPT/HCPCS: 36415; 71045; 80053; 84484; 85025; 93005; 96374; 99284; J3490; J7030; 93010; 99283